=== PATIENT | female | born 1945 | race African-American/Black ===

== ENCOUNTER 2017-03-04 10:01 | Emergency (ER) | payer MEDICARE, OTHER ==
--- NOTE | 2017-03-04 10:49 | RAD ---
RIGHT HIP: Two views. HISTORY: Fall this a.m. with injury to right hip with pain. FINDINGS: There are degenerative changes at the right hip. Mild spurring from the femoral head and acetabulum. No evidence of fracture. IMPRESSION: No evidence of acute fracture identified. POS: [facility]
== END 2017-03-04 11:01 | disposition home or self-care (01) ==
LOC: NAV ERS 10:01
DX: M25.551 Pain in right hip (principal); E11.9 Type 2 diabetes mellitus without complications; I10 Essential (primary) hypertension; Z79.82 Long term (current) use of aspirin; Z79.899 Other long term (current) drug therapy; Z79.84 Long term (current) use of oral hypoglycemic drugs; W01.0XXA Fall on same level from slipping, tripping and stumbling without subsequent striking against object, initial encounter; Z91.81 History of falling

== ENCOUNTER 2017-04-22 14:26 | Emergency (ER) | payer MEDICARE, OTHER ==
[2017-04-22 15:19] LABS: #Basophils 0.1 thou/uL (0.0-0.2); #Eosinphils 0.1 thou/uL (0.0-0.7); #Lymphocytes 1.4 thou/uL (1.20-3.40); #Monocytes 0.5 thou/uL (0.11-0.59); #Neutrophils 2.5 thou/uL (1.40-6.50); %Basophils 1.4 % (0.0-1.0); %Eosinophils 2.1 % (0.0-10.0); %Lymphocytes 30.9 % (21.0-51.0); %Monocytes 10.8 % (0.0-10.0); %Neutrophils 54.8 % (42.0-75.0); Hemoglobin 9.9 g/dL (12.0-16.0); Mean Corpuscular HGB CONC 31.6 g/dL (32.0-36.0); Mean Corpuscular Hemoglobin 29.2 pg (27.0-31.0); Mean Corpuscular Volume 92.3 fl (81.0-99.0); Mean Platelet Volume 5.6 fL (7.4-10.4); Platelet Count 238 thou/uL (130-400); RBC Distribution Width 11.8 % (11.5-14.5); Red Blood Cell (RBC) Count 3.38 mill/uL (4.20-5.40); White Blood Cell (WBC) Count 4.6 thou/uL (4.8-10.8)
[2017-04-22 15:27] LABS: ALT (SGPT) 16 U/L (8-55); AST (SGOT) 20 U/L (5-34); Albumin 3.7 g/dL (3.4-4.8); Alkaline Phosphatase 74 U/L (40-150); Anion Gap 13 mmol/L (10-20); BUN (Urea Nitrogen) 22 mg/dL (9.8-20.1); Bilirubin, Total 0.1 mg/dL (0.2-1.2); Calc. Creatinine Clearance 0 mL/min (70-130); Calcium 9.1 mg/dL (7.8-10.44); Carbon Dioxide 28 mmol/L (23-31); Chloride 101 mmol/L (98-107); Estimated GFR-MDRD 84; Globulin 3.1 g/dL (2.4-3.5); Glucose 93 mg/dL (83-110); Potassium 3.9 mmol/L (3.5-5.1); Protein, Total 6.8 g/dL (6.0-8.3); Sodium 138 mmol/L (136-145)
[2017-04-22 15:39] LABS: CKMB 4.8 ng/mL (0-6.6); Troponin I 0.012 ng/mL (< 0.028)
--- NOTE | 2017-04-22 15:47 | RAD ---
PORTABLE CHEST 1 VIEW: Date: 04/22/17 Time: 1511 hours HISTORY: Chest pain. FINDINGS: Comparison made with exam of 05/01/15. The heart size is prominent. No confluent areas of consolidation, pneumothorax, martin pulmonary edema , or pleural effusions are seen. IMPRESSION: No acute process. POS: [facility]
== END 2017-04-22 15:55 | disposition home or self-care (01) ==
LOC: NAV ERS 14:26
DX: R07.89 Other chest pain (principal); I10 Essential (primary) hypertension; E11.9 Type 2 diabetes mellitus without complications; Z87.891 Personal history of nicotine dependence; Z79.84 Long term (current) use of oral hypoglycemic drugs; Z79.899 Other long term (current) drug therapy
CPT/HCPCS: 71045; 80053; 82553; 84484; 85025; 93005

== ENCOUNTER 2018-09-16 19:44 | Emergency (ER) | payer MEDICARE, MEDICAID ==
--- NOTE | 2018-09-16 20:36 | RAD ---
FOUR VIEWS RIGHT KNEE: 09/16/18 HISTORY: Fall. Pain. Trauma. FINDINGS: Moderate degenerative changes in the medial compartment. Lateral compartment is unremarkable. There i s no evidence of a significant suprapatellar effusion. However, there is an avulsive fracture involvi ng the inferior aspect of the patella with distraction at the fracture site. IMPRESSION: Patellar fracture with distraction at the fracture site. POS: [facility]
[2018-09-16] MEDS ORDERED: Bacitracin 1 PK ONE (20:49)
== END 2018-09-16 21:04 | disposition home or self-care (01) ==
LOC: NAV ERS 19:44
DX: S82.001A Unspecified fracture of right patella, initial encounter for closed fracture (principal); E11.9 Type 2 diabetes mellitus without complications; I10 Essential (primary) hypertension; Z79.84 Long term (current) use of oral hypoglycemic drugs; Z79.899 Other long term (current) drug therapy; Z79.82 Long term (current) use of aspirin; W18.30XA Fall on same level, unspecified, initial encounter

== ENCOUNTER 2018-09-19 13:23 | Emergency (ER) | payer MEDICARE, MEDICAID | END 2018-09-19 13:55 | disposition home or self-care (01) | LOC: NAV ERS 13:23 | DX: S82.001A Unspecified fracture of right patella, initial encounter for closed fracture (principal); E11.9 Type 2 diabetes mellitus without complications; I10 Essential (primary) hypertension; E78.00 Pure hypercholesterolemia, unspecified; Z79.899 Other long term (current) drug therapy; Z79.82 Long term (current) use of aspirin; W18.30XA Fall on same level, unspecified, initial encounter | CPT/HCPCS: 99281 ==

== ENCOUNTER 2019-05-03 16:01 | Emergency (ER) | payer MEDICARE, OTHER | END 2019-05-03 16:42 | disposition home or self-care (01) | LOC: NAV ERS 16:01 | DX: I10 Essential (primary) hypertension (principal); E11.9 Type 2 diabetes mellitus without complications; E78.00 Pure hypercholesterolemia, unspecified; Z79.84 Long term (current) use of oral hypoglycemic drugs; Z79.82 Long term (current) use of aspirin; Z79.899 Other long term (current) drug therapy | CPT/HCPCS: 99281 ==

== ENCOUNTER 2019-05-18 18:01 | Emergency (ER) | payer MEDICAID, MEDICARE | END 2019-05-18 18:44 | disposition home or self-care (01) | LOC: NAV ERS 18:01 | DX: E11.9 Type 2 diabetes mellitus without complications (principal); Z76.0 Encounter for issue of repeat prescription; I10 Essential (primary) hypertension; E78.00 Pure hypercholesterolemia, unspecified; Z79.82 Long term (current) use of aspirin; Z79.84 Long term (current) use of oral hypoglycemic drugs; Z79.899 Other long term (current) drug therapy | CPT/HCPCS: 36416; 99282 ==

== ENCOUNTER 2019-12-11 10:21 | Outpatient (CLI) | payer MEDICARE ==
--- NOTE | 2019-12-11 10:44 | RAD ---
Abdomen 2 views HISTORY: Abdominal pain. Tender right upper quadrant mass. FINDINGS: Large amount of stool is apparent throughout the colon and rectum. No differential air-fluid levels or evidence of free subdiaphragmatic gas. Subtle flocculent hyperdensity throughout the abdomen has the appearance of bowel content. Calcified granulomata are evident within the soft tissues over each side of the pelvis. Prominent degenerative changes of the lumbar spine and hips. IMPRESSION : Constipation. No new abnormalities are demonstrated.
== END 2019-12-11 10:22 | disposition home or self-care (01) ==
LOC: NAV RAD 10:21
PROVIDERS: ATTEND Family Medicine
DX: R19.01 Right upper quadrant abdominal swelling, mass and lump (principal); K59.00 Constipation, unspecified
CPT/HCPCS: 74019

== ENCOUNTER 2020-07-23 14:36 | Outpatient (CLI) | payer MEDICARE | END 2020-07-23 14:37 | disposition home or self-care (01) | LOC: NAV RAD 14:36 | PROVIDERS: ATTEND Family Medicine | DX: M54.5 Low back pain (principal); M51.36 Other intervertebral disc degeneration, lumbar region; M47.816 Spondylosis without myelopathy or radiculopathy, lumbar region; M43.16 Spondylolisthesis, lumbar region; M43.8X6 Other specified deforming dorsopathies, lumbar region | CPT/HCPCS: 72100 ==

== ENCOUNTER 2022-04-07 20:03 | Emergency (ER) | payer MEDICAID, MEDICARE ==
[2022-04-07] MEDS ORDERED: Silver Sulfadiazine 50 GM TUBE ONE (20:48)
== END 2022-04-07 21:57 | disposition home or self-care (01) ==
LOC: NAV ERS 20:03
DX: T23.212A Burn of second degree of left thumb (nail), initial encounter (principal); T23.222A Burn of second degree of single left finger (nail) except thumb, initial encounter; E11.9 Type 2 diabetes mellitus without complications; I10 Essential (primary) hypertension; E78.00 Pure hypercholesterolemia, unspecified; Z79.84 Long term (current) use of oral hypoglycemic drugs; Z79.899 Other long term (current) drug therapy; X19.XXXA Contact with other heat and hot substances, initial encounter
CPT/HCPCS: 99283

== ENCOUNTER 2022-07-07 14:49 | Outpatient (CLI) | payer MEDICARE | END 2022-07-07 14:50 | disposition home or self-care (01) | LOC: NAV RAD 14:49 | PROVIDERS: ATTEND Family Medicine | DX: M25.552 Pain in left hip (principal) ==

== ENCOUNTER 2023-11-28 09:45 | Outpatient (CLI) | payer MEDICARE | END 2023-11-28 09:46 | disposition home or self-care (01) | LOC: NAV RAD 09:45 | PROVIDERS: ATTEND Family Medicine | DX: M54.50 Low back pain, unspecified (principal); M47.816 Spondylosis without myelopathy or radiculopathy, lumbar region | CPT/HCPCS: 72100 ==